=== PATIENT | female | born 1995 | race Caucasian/White ===

== ENCOUNTER 2019-08-27 15:04 | Outpatient (RCR) | payer OTHER, SELFPAY ==
[2019-08-27 17:02] LABS: Hematocrit 37.1 % (37.0-47.0); Hemoglobin 12.3 g/dL (12.0-15.0)
[2019-08-27 17:18] LABS: Glucose 66 mg/dL (65-105)
[2019-08-27 17:59] LABS: HIV 1/2 Ab P24 Ag Result Negative (Negative)
[2019-08-28 06:55] LABS: Rapid Plasma Reagin Non-Reactive (NonReactive)
[2019-08-28] MEDS: RHO(D) IMMUNE GLOBULIN 300 MCG SYRINGE IM (10:15)
== END 2019-11-25 23:59 | disposition home or self-care (01) ==
LOC: ANHLAB 15:04
PROVIDERS: Visit Provider Advanced Practice Midwife
DX: Z36.89 Encounter for other specified antenatal screening (principal); Z29.13 Encounter for prophylactic Rho(D) immune globulin; O36.0990 Maternal care for other rhesus isoimmunization, unspecified trimester, not applicable or unspecified; Z3A.00 Weeks of gestation of pregnancy not specified
CPT/HCPCS: 36415; 82947; 85014; 85018; 86592; 86703; 86900; 86901; 90384; 96372; G0432; J2790

== ENCOUNTER 2019-10-16 13:34 | Inpatient (IN) | payer OTHER, SELFPAY ==
[2019-10-16] VITALS (12 sets, daily range): BP systolic 129–158; BP diastolic 73–92; PULSE 96–122; TEMP 36.2–36.8; O2SAT 100; BMI 28.3
--- NOTE | ~2019-10-16 | US_ITS ---
US OB limited DATE: 10/16/2019 15:32 INDICATION: No heart tones TECHNIQUE: Real-time imaging and Doppler analysis COMPARISON: None FINDINGS: There is a fetus in vertex presentation, longitudinal lie but no heart motion is pres ent. Findings consistent with demise. Amniotic fluid index is 11.9 cm, which is between the 5th percentile of 8.1 cm and 95th percentile 24 .8 cm. IMPRESSION: demise Reviewed, dictated and finalized at [facility] Reviewed, dictated and finalized at [facility]. IMPRESSION: demise
--- NOTE | 2019-10-16 14:21 | PM.IMHP ---
H&P: HPI History of Present Illness Chief complaint: DFM Narrative: Emelia Rojo is a 23 year old female G1 at 34+4 with c/o decreased movement, none felt for about 24 hours. No bleeding, leaking fluid, contractions. She denies problems this other than low-lying placenta, which resolved. Review of Systems Review of Systems: All systems reviewed & are unremarkable except as noted in HPI and below Meds Vital Signs Vital Signs - 24 hr 10/16/19 13:58 10/16/19 14:00 Pulse Rate 98 Blood Pressure 136/91 H Pulse Oximetry 100 Exam Const: General: no acute distress Resp: Auscultation: clear to auscultation bilaterally Cardio: Rate: regular rate Rhythm: regular rhythm GI: Inspection: non-distended GI Palp: Yes Soft to palpation and No Tenderness to palpation present (GI) Other: gravid Extrem: General: no edema Psych: Mental Status: mental status grossly normal Assessment and Plan Assessment and plan (1) demise, greater than 22 weeks, antepartum, single gestation: Code(s): O36.4XX0 - Maternal care for intrauterine , not applicable or unspecified Status: Acute Assessment and Plan: Check formal ultrasound to check PAULA, umbilical cord, and confirm diagnosis. Patient and her partner were counseled about options including discharge home to await spontaneous labor or induction at a later date/time, or immediate induction of labor as soon as she wishes. We briefly discussed autopsy and other testing after delivery. They will consider all of this. Rh negative s/p Rhogam. Check type and screen and KB.
--- NOTE | 2019-10-16 14:58 | WPDPN ---
Progress Note: A&P Assessment and Plan (1) demise, greater than 22 weeks, antepartum, single gestation: Code(s): O36.4XX0 - Maternal care for intrauterine , not applicable or unspecified Status: Acute Assessment and Plan: Patient has now opted to stay to have labor induced. Start cervidil once patient is ready, then pitocin tomorrow. She will consider autopsy, genetic testing, etc. (2) Elevated blood pressure affecting in third trimester, antepartum: Code(s): O16.3 - Unspecified maternal hypertension, third trimester Status: Acute Assessment and Plan: BP mildly elevated, asymptomatic. Will continue to observe since she's clearly in emotional distress at this time Objective Data Vital Signs Vital Signs: Vital Signs - 24 hr 10/16/19 13:58 10/16/19 14:00 10/16/19 14:32 Pulse Rate 98 114 H Blood Pressure 136/91 H 158/82 H Pulse Oximetry 100
[2019-10-16 16:28] LABS: Basophils Absolute Auto 0.1 K/mm3 (0.0-0.1); Basophils Percent Auto 0.5 % (0.2-1.2); Eosinophils Absolute Auto 0.1 K/mm3 (0-0.3); Eosinophils Percent Auto 0.8 % (0-4.4); Hematocrit 37.4 % (37.0-47.0); Hemoglobin 12.3 g/dL (12.0-15.0); Immature Granulocyte Absolute 0.09 K/mm3 (0.00-0.031); Immature Granulocyte Percent A 0.9 % (0-0.5); Lymphocytes Absolute Auto 1.33 K/mm3 (0.9-3.2); Lymphocytes Percent Auto 13.1 % (18.3-44.2); Mean Corpuscular HGB Conc 32.9 g/dl (32-36); Mean Corpuscular Volume 82.2 fl (80-100); Mean Platelet Volume 10.1 fl (7.4-10.4); Monocytes Absolute Auto 0.5 K/mm3 (0.1-0.6); Monocytes Percent Auto 4.5 % (2.6-8.5); Neutrophils Absolute Auto 8.2 K/mm3 (1.3-6.7); Neutrophils Percent Auto 80.2 % (45.5-73.1); Platelet Count Result 328 k/mm3 (150-375); Red Blood Count 4.55 M/mm3 (4.2-5.4); Red Cell Distribution Width 13.3 % (11.5-14.5); White Blood Count 10.2 K/mm3 (4.5-10.0)
[2019-10-16 16:38] LABS: Glucose 82 mg/dL (65-105)
[2019-10-16] MEDS: DINOPROSTONE 10 MG VAG INSERT VAGINAL (16:42)
[2019-10-16 17:11] LABS: Thyroid Stimulating Hormone 0.976 uIU/mL (0.465-4.680)
[2019-10-16 17:12] LABS: Amphetamine Screen Urine Negative (Negative); Barbiturate Screen Urine Negative (Negative); Benzodiazepines Screen Urine Negative (Negative); Cannabinoid Screen Urine Negative (Negative); Cocaine Screen Urine Negative (Negative); Methadone Screen Urine Negative (Negative); Opiate Screen Urine Negative (Negative); Phencyclidine Screen Urine Negative (Negative)
[2019-10-16 17:20] LABS: HIV 1/2 Ab P24 Ag Result Negative (Negative)
--- NOTE | 2019-10-16 17:23 | LDADM ---
This patient, Emelia Rojo, was admitted to Labor/Delivery/Recovery 110 on 10/16/19 at 13:35. Plans for labor, pain management and were discussed with patient. Patient/family oriented to hospital policies and general routines including ID bracelet, bed and alarms, visiting hours, pain management, procedures, bathroom and other care routines, personal items, smoking policy, room service/diet and guest tray routines, infant security routines, and visiting hours. Patient/Family are encouraged to report perceived risks to care and to ask questions if they do not understand what they are told or what they should do. See OBIX for further documentation.
[2019-10-16 17:54] LABS: Free T4 Free Thyroxine 0.92 ng/mL (0.78-2.19)
--- NOTE | 2019-10-16 18:43 | WPDANESEPP ---
Anes - Eval Pre Procedure Procedure: Labor epidural Date/Time: 10/16/19 18:43 Surgeon: Pancho Preop Diagnosis: Abd pain with contractions Pre Op Diagnosis: DFM Patient Data Age: 23 Gender: F Height: 5 ft 7 in Weight: 82 kg Last Vital Signs Temp 97.1 F L 10/16/19 16:40 Pulse 111 H 10/16/19 18:00 BP 148/85 H 10/16/19 18:00 Pulse Ox 100 10/16/19 14:00 Allergies Allergy/AdvReac Type Severity Reaction Status Date / Time No Known Allergies Allergy Verified 10/16/19 16:36 Home Medications Medication Instructions Recorded Confirmed Type One-A-Day Women's 1 1 cap PO DAILY 10/16/19 10/16/19 History Laboratory Tests 10/16/19 10/16/19 10/16/19 16:03 16:03 16:03 WBC 10.2 K/mm3 H K/mm3 (4.5-10.0) RBC 4.55 M/mm3 M/mm3 (4.2-5.4) Hgb 12.3 g/dL g/dL (12.0-15.0) Hct 37.4 % % (37.0-47.0) MCV 82.2 fl fl (80-100) MCH 27.0 pg pg (26-34) MCHC 32.9 g/dl g/dl (32-36) RDW 13.3 % % (11.5-14.5) Plt Count 328 k/mm3 k/mm3 (150-375) MPV 10.1 fl fl (7.4-10.4) Immature Gran % (Auto) 0.9 % H % (0-0.5) Neut % (Auto) 80.2 % H % (45.5-73.1) Lymph % (Auto) 13.1 % L % (18.3-44.2) [place] % (Auto) 4.5 % % (2.6-8.5) Eos % (Auto) 0.8 % % (0-4.4) Baso % (Auto) 0.5 % % (0.2-1.2) Lymph # (Auto) 1.33 K/mm3 K/mm3 (0.9-3.2) [place] # (Auto) 0.5 K/mm3 K/mm3 (0.1-0.6) Eos # (Auto) 0.1 K/mm3 K/mm3 (0-0.3) Baso # (Auto) 0.1 K/mm3 K/mm3 (0.0-0.1) Abs Immat Gran (auto) 0.09 K/mm3 H K/mm3 (0.00-0.031) Absolute Neuts (auto) 8.2 K/mm3 H K/mm3 (1.3-6.7) Absolute Nucleated RBC 0.0 K/mm3 K/mm3 (0.0-0.012) Nucleated RBC % 0.0 % % (0.0-0.2) LA PTT Screen Pending dRVVT Screen Pending dRVVT Additional Test Pending Lupus Anticoag Interp Pending Glucose 82 mg/dL mg/dL (65-105) TSH 0.976 uIU/mL uIU/mL (0.465-4.680) Free T4 Urine Opiates Screen Urine Methadone Screen Ur Barbiturates Screen Ur Phencyclidine Scrn Ur Amphetamine Screen U Benzodiazepines Scrn Urine Cocaine Screen U Cannabinoids Screen Anti-Cardiolipin IgG Ab Anti-Cardiolipin IgA Ab Anti-Cardiolipin IgM Ab RPR CMV IgG Ab CMV IgM Ab HIV 1&2 Ab/P24 Ag 4thGn Blood Type Antibody Screen Antibody Identification Antigen Identification NOA, IgG Interpret NOA, Poly Interpret NOA, Complement Interp KB Hemoglobin 10/16/19 10/16/19 10/16/19 16:03 16:03 16:03 WBC RBC Hgb Hct MCV MCH MCHC RDW Plt Count MPV Immature Gran % (Auto) Neut % (Auto) Lymph % (Auto) [place] % (Auto) Eos % (Auto) Baso % (Auto) Lymph # (Auto) [place] # (Auto) Eos # (Auto) Baso # (Auto) Abs Immat Gran (auto) Absolute Neuts (auto) Absolute Nucleated RBC Nucleated RBC % LA PTT Screen dRVVT Screen dRVVT Additional Test Lupus Anticoag Interp Glucose TSH Free T4 0.92 ng/mL ng/mL (0.78-2.19) Urine Opiates Screen Urine Methadone Screen Ur Barbiturates Screen Ur Phencyclidine Scrn Ur Amphetamine Screen U Benzodiazepines Scrn Urine Cocaine Scre
[2019-10-16] MEDS: ACETAMINOPHEN 500 MG TABLET 1000 MG PO (19:41)
[2019-10-16] MEDS: ZOLPIDEM TARTRATE 5 MG TABLET PO (23:20)
[2019-10-17] VITALS (86 sets, daily range): BP systolic 109–156; BP diastolic 57–101; PULSE 28–130; RESP 20; TEMP 36.6–37.7; O2SAT 87–100
[2019-10-17] MEDS: LACTATED RINGERS 1,000 ML 125 ML IV CONT ×3 (05:46→09:17)
[2019-10-17] MEDS: OXYTOCIN 30 UNITS/NS 500 ML 30 UNITS/500 ML BAG 6 UNITS IV CONT (05:47)
[2019-10-17 07:20] LABS: Rapid Plasma Reagin Non-Reactive (NonReactive)
--- NOTE | 2019-10-17 07:43 | PM.OBPNLAB ---
Pain Control Date/time seen: 10/17/19 07:43 Pain control: tolerating well Pelvic Exam Dilation (cm): 1 Effacement (%): 80 station: -2 Amniotic membrane status: Ruptured (Moderate amount of red tinged fluid + odor) Contractions Monitor mode: External Contraction pattern: Irregular Status Comments: IUFD Assessment and Plan Comments: continue pitocin, anticipate vaginal delivery
--- NOTE | 2019-10-17 08:16 | WPDANESEPPF ---
Anes - Initial Pre Proc Eval Date/Time: 10/17/19 08:16 Surgeon: Luis Deleon MD Pre Op Diagnosis: DFM Patient Data Age: 23 Gender: F Height: 1.7 m Weight: 82 kg Last Vital Signs Temp 36.9 C 10/17/19 02:30 Pulse 96 10/17/19 08:00 BP 129/78 10/17/19 08:15 Pulse Ox 100 10/16/19 14:00 Allergies Allergy/AdvReac Type Severity Reaction Status Date / Time No Known Allergies Allergy Verified 10/16/19 16:36 Home Medications Medication Instructions Recorded Confirmed Type One-A-Day Women's 1 1 cap PO DAILY 10/16/19 10/16/19 History Laboratory Tests 10/16/19 10/16/19 10/16/19 16:03 16:03 16:03 WBC 10.2 K/mm3 H K/mm3 (4.5-10.0) RBC 4.55 M/mm3 M/mm3 (4.2-5.4) Hgb 12.3 g/dL g/dL (12.0-15.0) Hct 37.4 % % (37.0-47.0) MCV 82.2 fl fl (80-100) MCH 27.0 pg pg (26-34) MCHC 32.9 g/dl g/dl (32-36) RDW 13.3 % % (11.5-14.5) Plt Count 328 k/mm3 k/mm3 (150-375) MPV 10.1 fl fl (7.4-10.4) Immature Gran % (Auto) 0.9 % H % (0-0.5) Neut % (Auto) 80.2 % H % (45.5-73.1) Lymph % (Auto) 13.1 % L % (18.3-44.2) [place] % (Auto) 4.5 % % (2.6-8.5) Eos % (Auto) 0.8 % % (0-4.4) Baso % (Auto) 0.5 % % (0.2-1.2) Lymph # (Auto) 1.33 K/mm3 K/mm3 (0.9-3.2) [place] # (Auto) 0.5 K/mm3 K/mm3 (0.1-0.6) Eos # (Auto) 0.1 K/mm3 K/mm3 (0-0.3) Baso # (Auto) 0.1 K/mm3 K/mm3 (0.0-0.1) Abs Immat Gran (auto) 0.09 K/mm3 H K/mm3 (0.00-0.031) Absolute Neuts (auto) 8.2 K/mm3 H K/mm3 (1.3-6.7) Absolute Nucleated RBC 0.0 K/mm3 K/mm3 (0.0-0.012) Nucleated RBC % 0.0 % % (0.0-0.2) LA PTT Screen Pending dRVVT Screen Pending dRVVT Additional Test Pending Lupus Anticoag Interp Pending Glucose 82 mg/dL mg/dL (65-105) TSH 0.976 uIU/mL uIU/mL (0.465-4.680) Free T4 Urine Opiates Screen Urine Methadone Screen Ur Barbiturates Screen Ur Phencyclidine Scrn Ur Amphetamine Screen U Benzodiazepines Scrn Urine Cocaine Screen U Cannabinoids Screen Anti-Cardiolipin IgG Ab Anti-Cardiolipin IgA Ab Anti-Cardiolipin IgM Ab RPR CMV IgG Ab CMV IgM Ab HIV 1&2 Ab/P24 Ag 4thGn Blood Type Antibody Screen Antibody Identification Antigen Identification NOA, IgG Interpret NOA, Poly Interpret NOA, Complement Interp KB Hemoglobin 10/16/19 10/16/19 10/16/19 16:03 16:03 16:03 WBC RBC Hgb Hct MCV MCH MCHC RDW Plt Count MPV Immature Gran % (Auto) Neut % (Auto) Lymph % (Auto) [place] % (Auto) Eos % (Auto) Baso % (Auto) Lymph # (Auto) [place] # (Auto) Eos # (Auto) Baso # (Auto) Abs Immat Gran (auto) Absolute Neuts (auto) Absolute Nucleated RBC Nucleated RBC % LA PTT Screen dRVVT Screen dRVVT Additional Test Lupus Anticoag Interp Glucose TSH Free T4 0.92 ng/mL ng/mL (0.78-2.19) Urine Opiates Screen Urine Methadone Screen Ur Barbiturates Screen Ur Phencyclidine Scrn Ur Amphetamine Screen U Benzodiazepines Scrn Urine Cocaine Screen U Cannabinoids Screen Anti-Cardiol
--- NOTE | 2019-10-17 12:31 | P.PCNOB_ITS ---
OB - Delivery Note Procedure Delivery date: 10/17/19 Procedure: vaginal delivery of IUFD events: Labor Induction Induction method: per misoprostol protocol and per pitocin protocol Delivery augmentation: rupture of membranes Delivery monitor: external uterine Route of delivery: Laceration description: None Specimen: Yes Estimated blood loss (mL): 15 Anesthesia type: Epidural [place] Baby Date of : 10/17/19 Time of : 12:10 Weeks of gestation at delivery: 34 Infant gender: Male Narrative: IUFD, delivered male , , twisting and narrowing at base of cord, no other abnormalities visually seen
[2019-10-17] MEDS: IBUPROFEN 600 MG TABLET PO (17:20)
[2019-10-17] MEDS: WITCH HAZEL 40 PADS 1 PAD TOPICAL (17:21)
[2019-10-17] MEDS: BENZOCAINE 20% AER SPR (*SP) 56 GM CAN 1 SPRAY TOPICAL (17:21)
[2019-10-17] MEDS: ACETAMINOPHEN 325 MG TABLET 650 MG PO (21:44)
[2019-10-17] MEDS: RHO(D) IMMUNE GLOBULIN 300 MCG SYRINGE IM (22:53)
[2019-10-20 20:28] LABS: Lupus dRVVT 1:1 Mix Interpreta Not Indicated; Lupus dRVVT Screen 33 sec (<=45); PTT-LA Screen 33 sec (<=40)
[2019-10-21 02:08] LABS: Anti Cardio Antibody IgM <12 MPL (<=12); Anti Cardiolipin Antibody IgA <11 APL (<=11); Anti Cardiolipin Antibody IgG <14 GPL (<=14)
--- NOTE | 2019-10-22 07:50 | PM.OBDSVD ---
DS: Diagnosis Admitting Diagnosis Admitting Diagnosis: Maternal care for intrauterine , not applicable or unspecified OB - DS: Summary OB Procedures : Other (IUFD at 34 weeks) OB Procedures Intrapartum: Spontaneous Vag Delivery OB Procedures: : None Time Spent with Patient Time attestation: Total time spent providing and/or coordinating discharge services: DS: Data Data Completed and Pending Pending studies at discharge: Pending at discharge 10/17/19 14:33 Cytology [PTH] Routine 10/17/19 14:37 Autopsy [PTH] Routine Discharge Plan Discharge Consulting providers: Song Carver ; Js Martinez ; Maria Victoria Vick Discharging Clinician: Maria Victoria Vick Anticipated Discharge Date/Time: 10/17/19 23:30 Patient Disposition: Home, Self-Care Activity: as tolerated Diet: regular Discharge Instructions: Follow-Up: Call your Provider's office for an appointment to be seen in: 4 weeks PERINEAL CARE: * Until bleeding stops, use your mike bottle after urinating * Change your pad frequently throughout the day * You may take sitz baths several times a day (fill your bathtub with warm water and soak for 20 minutes.) Do NOT bathe in the water * No tub baths until seen by your physician - You may shower BLEEDING: * Each individual will experience vaginal bleeding, but it will vary with each situation and individual woman. * Vaginal bleeding will go thru cycles-from bright red, to pinkish to a white, creamy discharge. This is considered normal. You may also experience a brownish discharge which is also normal. DIET AND NUTRITION: * Eat at least 3 regular, well-balanced meals per day: include all 4 food groups daily. * You may prefer 6 small meals. * Drink 6-8 glasses of water or non-caffeinated beverages per day. * Loss of appetite is common with loss. We encourage you to try to eat; this will help with both your physical and emotional health. ACTIVITY: * Rest as much as possible during the day. * Do not exercise or lift anything heavier than 10 pounds (such as laundry or other children.) * Avoid stairs or driving as much as possible, especially if you are taking pain medication. * Do not put anything into the vagina. No douching, tampons, or sexual activity until seen and released by your physician. * Listen to your body, and do not do what is uncomfortable or painful. EMOTIONAL HEALTH: * This is a very difficult and sad time for you and your family, friends, and other children. It may be helpful to refer to the booklets on loss that you received. * It is okay to be sad and to cry. Denial, anger, and guilt are also normal stages that you and your family may go thru during this time. Each person reaches these stages at their own pace. * Keep the lines of communication open between family and friends, and ask for help if needed. NOTIFY PHYSICIAN IF YOU HAVE ANY QUESTIONS OR IF ANY OF THE FOLLOWING SYMPTOMS OCCUR: * If your vaginal bleeding becomes foul smelling. * If your vaginal bleeding becomes more heavy than a period or if your bleeding changes from pink to bright red. However, you may pass an occasional walnut-sized clot once or twice for the first week . * If you experience a sharp, shooting pain in you calves. * If you discover a hard, reddened area on your breast or if you experience flu-like symptoms. * If you develop a temperature of 100.4 or greater. * If you are unable to eat or sleep and take care of activities that sustain life. * If you feel any desire to harm yourself or others, contact your physician immediately or go to the nearest emergency room. FOLLOW-UP CARE: * [facility] offers a and Loss Support group which meets the Sunday of every month from 7-9pm. * If consent was given, you will be contacted by a Share counselor to see how you are doing. * If you have questions regarding the griev
[2019-10-23 20:26] LABS: CMV IgM Antibody <30.00 AU/mL (<30.00)
== END 2019-10-17 23:45 | disposition home or self-care (01) | DRG 806 ==
PROVIDERS: Admitting Provider Obstetrics & Gynecology; Visit Provider Obstetrics & Gynecology
DX: O36.4XX0 Maternal care for intrauterine death, not applicable or unspecified (principal); O10.92 Unspecified pre-existing hypertension complicating childbirth; Z37.1 Single stillbirth; Z3A.34 34 weeks gestation of pregnancy
CPT/HCPCS: 36415; 76815; 80307; 82947; 84439; 84443; 85025; 85460; 85461; 85613; 85730; 86147; 86592; 86644; 86645; 86703; 86850; 86880; 86900; 86901; 86902; 88305; 88307; 90384; A9270; G0432; J2590; J2790; J2795; J7120